=== PATIENT | female | born 1990 | race Caucasian/White ===

== ENCOUNTER 2018-03-28 22:58 | Emergency (ER) | payer OTHER ==
[2018-03-28 23:33] VITALS: BP 126/84
--- NOTE | 2018-03-28 23:57 | RADIOLOGY REPORT (SQ) ---
3 VIEWS OF THE RIGHT FOOT HISTORY: Dropped 2 x 12 on foot. Swelling and pain. COMPARISON: None. FINDINGS/IMPRESSION: Normal bone mineralization. No acute fracture or malalignment. Bipartite medial hallux sesamoid, a normal variant. Type I accessory navicular. Os peroneum. Soft tissue swelling overlying the dorsum of foot.
--- NOTE | 2018-03-29 00:05 | ER Document Report ---
ED General - General Chief Complaint: Foot Injury Stated Complaint: RIGHT FOOT INJURY Time Seen by Provider: 03/28/18 23:12 Notes: Patient is a pleasant 19-year-old female presents with complaint of pain and swelling of the dorsum of the right foot after a 2 x 12 piece of wood fell onto it. She denies any other injuries. Pain is only in the foot. No numbness into the toes. She says that she has pain when she tries to flex the toes. She says she is able to extend the toes without difficulty. TRAVEL OUTSIDE OF THE [place] IN LAST 30 DAYS: No - Related Data Allergies/Adverse Reactions: codeine Allergy (Verified 03/28/18 23:01) Past Medical History - Social History Smoking Status: Never Smoker Frequency of alcohol use: None Drug Abuse: None Family History: Reviewed & Not Pertinent Review of Systems - Review of Systems Notes: My Normal Review Basic REVIEW OF SYSTEMS: CONSTITUTIONAL : Denies fever, chills, or sweats. Denies recent illness. MUSCULOSKELETAL: Localized area of swelling over the dorsum of the right foot SKIN: Denies rash or skin lesions. NEUROLOGICAL: Denies sensory loss. ALL OTHER SYSTEMS REVIEWED AND NEGATIVE. Physical Exam - Vital signs Vitals: Temp Pulse Resp BP Pulse Ox 98.3 F 91 16 126/84 H 99 03/28/18 23:31 03/28/18 23:31 03/28/18 23:31 03/28/18 23:31 03/28/18 23:31 - Notes Notes: General Appearance: Well nourished, alert, cooperative, no acute distress, no obvious discomfort. Vitals: reviewed, See vital signs table. Extremities: strength 5/5 in all extremities, good pulses in all extremities, patient has a localized swelling likely representing hematoma of the dorsum of the right foot. She has tenderness all around this area. The ankle and the distal leg are nontender. Patient is able to flex her toes some but it causes pain over the dorsum of her foot when she does so. She is able to extend the toes. Distal sensation intact. Good capillary refill in all toes. Skin: warm, dry, appropriate color, no rash Neuro: speech clear, oriented x 3, normal affect, responds appropriately to questions. Course - Re-evaluation Re-evalutation: 03/29/18 04:59 X-ray is negative for fracture. Encourage patient to place ice packs over the area of swelling on her foot for 30 minutes at a time. I encouraged her to stay off of it. She already has crutches. Encouraged her return to ER if she has increasing swelling, increasing pain, or she feels that she is worsening in any way. Patient agrees with plan will be discharged home. Dictation of this chart was performed using voice recognition software; therefore, there may be some unintended grammatical errors. - Vital Signs Vital signs: Temp Pulse Resp BP Pulse Ox 98.3 F 91 16 126/84 H 99 03/28/18 23:31 03/28/18 23:31 03/28/18 23:31 03/28/18 23:31 03/28/18 23:31 Discharge - Discharge Clinical Impression: Foot contusion Qualifiers: Encounter type: initial encounter Laterality: right Qualified Code(s): S90.31XA - Contusion of right foot, initial encounter Condition: Good Disposition: HOME, SELF-CARE Additional Instructions: Please return to the if you have worsening swelling or intractable pain. please use crutches until the swelling goes down and it is no longer painful to bear weight on your foot. please follow up with the orthopedist, Dr. Mays, if you still have difficulty curling your toes in after the swelling as resolved. Please apply ice packs to the dorsum of your foot for 30 minutes at a time. Referrals: LEXI MAYS MD [ACTIVE STAFF] - Follow up in 3-5 days
== END 2018-03-29 00:22 | disposition home or self-care (01) ==
LOC: ER 22:58
DX: S90.31XA Contusion of right foot, initial encounter (principal); M79.671 Pain in right foot; W20.8XXA Other cause of strike by thrown, projected or falling object, initial encounter; Z88.5 Allergy status to narcotic agent
CPT/HCPCS: 99283